=== PATIENT | male | born 1995 | race Caucasian/White ===

== ENCOUNTER 2016-07-06 19:58 | Emergency (ER) | payer OTHER ==
[~2016-07-06] VITALS: Ht 182.9 cm; Wt 138.6 kg
[2016-07-06 20:09] VITALS: BP 148/80; PULSE 95; RESP 16; O2SAT 98
--- NOTE | 2016-07-06 21:05 | ED.REPORT ---
HPI-Back Pain Under 40 Date of Service Jul 06, 2016 ED Provider: Chris Beckman MD Patient is a 20 year old male with a history of chronic back pain who presents to the ED with acute low back pain after lifting heavy steel plates at work today. Patient states that he felt fine after he completed the lifting today and that his discomfort was gradual in onset after he returned home. He reports tingling and radiation of his pain down his right leg. He denies urinary or bowel incontinence. Patient denies any other numbness or weakness in his extremities. He denies any other injuries. Patient originally injured his back 3 years ago and has been working around his injury since that time. The patient takes Percocet at home daily for his chronic back pain, in addition to Cyclobenzaprine. He has plenty of these medications at home. Nursing Notes Stated Complaint: BACK PAIN Chief Complaint: Back Pain or Injury Nursing Notes Reviewed: Yes Allergies: Coded Allergies: No Known Allergies (Verified , 04/18/07) Scheduled Dexamethasone (Dexamethasone) 4 Mg Tablet 4 MG PO BID Methocarbamol (Robaxin-750) 750 Mg Tablet 1,500 MG PO QID Scheduled PRN Naproxen (Naprosyn) 500 Mg Tablet 500 MG PO BID PRN PRN For Pain General Time Seen by MD: 21:04 Chief Complaint Back pain Hx Obtained From: Patient Arrived By: Walk-in Sudden in Onset?: No Onset Occurred: 5 - 8 hours ago Symptom Duration: Since onset Location: : Generalized Quality: Painful Severity: Current: Moderate Severity: Maximum: Severe Recent Healthcare: No recent doctor visit, No recent hospitalization Similar Sx Previous: Yes Past Medical History Past Medical History migraines Past Surgical History nasal reconstruction laminectomy in 2010 Reports: Inguinal hernia repair Smoking History Unknown if Ever Smoker Social History Alcohol Use: Denies alcohol use Other Social History: Smokeless tobacco, Good social support, Local resident Ambulatory Status Independent Review of Systems Musculoskeletal: Reports: Back pain, Extremity pain Neurologic: Reports: Numbness (tingling), Denies: Bladder dysfunction, Bowel dysfunction, Weakness Complete sys rev & neg: except as marked. Physical Exam Initial Vital Signs Vital Signs (First) Date Time Temp Pulse Resp B/P Pulse Ox O2 Delivery O2 Flow Rate FiO2 07/06/16 20:09 36.1 95 16 148/80 98 Room Air Initial VS: Reviewed Head / Eyes: Atraumatic, Normocephalic, PERRL ENT: Conjunctiva normal, No scleral icterus Neck: Supple, Full range of motion Skin: Warm, Dry, No cyanosis Psychiatric: Mood/affect normal, Behavior normal, Normal thought content General/Constitutional: Awake, Alert, No acute distress Appearance / Presentation: Positive: Obese, morbidly Back: Atraumatic tender at the right sciatic notch Neurologic: Oriented X3, Speech NL, No motor deficits subjective decreased sensation right leg Respiratory / Chest: No respiratory distress, No stridor Cardiovascular: Heart rate NL, Peripheral circulation NL Re-Eval/Medical Decision Med Decision/Clinical Course 20-year-old chronic back pain presents with sciatic symptoms developing shortly after lifting some heavy metal plates at work. The progression was of some immediate pain but without sciatic symptoms, then developing sciatic symptoms over the next hour or two. This suggests muscle spasm is the primary culprit, although he has known disc disease. He is provided with Robaxin for muscle spasm, brief Decadron course, Naprosyn, and is discharged in stable and improved condition. He is given a single injection of Dilaudid here. Follow up with PCP for ongoing meds. He has Percocet prescribed already. Source of Hx: Old records Re-Evaluation/Progress : Time of Eval: 21:10 Patient Status: Condition improved Re-Evaluation/Progress Note: Patient will be given pain medication in the ED and started on a different muscle relaxer. Patient understands and agrees with the plan to be discharged home. Discharge instructions and follow-up discussed. All questions were addressed. Return to the ED warnings given. Counseled Regarding: Diagnosis, Need for follow-up, When/why to return to ED Discharge & Departure Impression: Primary Impression: Sciatica, right side Disposition: Home All VS Reviewed: Yes Condition: Stable Patient Instructions: Low Back Strain (ED), Sciatica (ED) Additional Instructions: Continue your Percocet as directed. Use cyclobenzaprine for sleep. Add Robaxin tablets four times daily. Decadron one tablet twice daily for three days Naprosyn twice daily or ibuprofen four times daily additionally. Follow-up with your doctor in the office. The numbness and tingling persists, you will need imaging, to be arranged by your doctor. Return if you develop any bowel or bladder incontinence or other new symptoms of concern. Referrals: John Freire MD (PCP) Scribe Attestation Portions of this note were transcribed by Kecia Tobias. I, Dr. Beckman personally performed the history, physical exam and medical decision-making; I reviewed and confirmed the accuracy of the information in the transcribed note. Signed by: Teena Heaton, 07/06/2016 2123 copies to: John Freire MD, Christopher W MD Jul 06, 2016 21:04 Kecia Tobias Jul 06, 2016 21:11
[2016-07-06] MEDS ORDERED: Ketorolac 30 mg/mL 2 mL Inj IM ONE (21:10)
[2016-07-06] MEDS ORDERED: Dexamethasone 20 mg/2 mL Oral Solution PO ONE (21:10)
[2016-07-06] MEDS ORDERED: HYDROmorphone 1 mg/mL Inj IM ONE (21:10)
[2016-07-06] MEDS ORDERED: METH-313 PO (21:15)
[2016-07-06] MEDS ORDERED: DXM4T PO (21:16)
[2016-07-06] MEDS ORDERED: NAPR500T PO (21:16)
== END 2016-07-06 21:40 | disposition home or self-care (01) ==
LOC: SED 19:58
DX: M54.31 Sciatica, right side (principal); X50.0XXA Overexertion from strenuous movement or load, initial encounter; Y93.89 Activity, other specified; Y92.69 Other specified industrial and construction area as the place of occurrence of the external cause; Y99.0 Civilian activity done for income or pay; Z87.828 Personal history of other (healed) physical injury and trauma
CPT/HCPCS: 96372; 99284; J1170; J1885